=== PATIENT | female | born 1975 | race Hispanic/Latino ===

== ENCOUNTER 2018-03-11 10:14 | Emergency (ER) | payer SELFPAY ==
[~2018-03-11] VITALS: Ht 160 cm; Wt 70.8 kg
[2018-03-11] MEDS ORDERED: SODIUM CHLORIDE 0.9% 500ML 500 ML IV ONE (11:15)
[2018-03-11] MEDS ORDERED: DIAZEPAM 5 MG TAB PO ONE ×2 (11:30→12:00)
[2018-03-11 11:47] VITALS: BP 141/95
[2018-03-11] MEDS ORDERED: DIAZEPAM INJ 5 MG/ML 2 ML IV ONE (12:00)
[2018-03-11] MEDS ORDERED: ONDANSETRON HCL INJ 2 MG/ML VIAL IV ONE (12:00)
== END 2018-03-11 12:21 | disposition home or self-care (01) ==
LOC: EDBD 10:14 → ER 10:14
DX: H81.391 Other peripheral vertigo, right ear (principal); H66.001 Acute suppurative otitis media without spontaneous rupture of ear drum, right ear; H60.501 Unspecified acute noninfective otitis externa, right ear; I10 Essential (primary) hypertension; E11.9 Type 2 diabetes mellitus without complications; Z83.3 Family history of diabetes mellitus; Z82.49 Family history of ischemic heart disease and other diseases of the circulatory system
CPT/HCPCS: 93005; 99283; J2405; J3360; J7040

== ENCOUNTER 2020-09-13 15:11 | Emergency (ER) | payer OTHER ==
[~2020-09-13] VITALS: Ht 160 cm; Wt 70.8 kg
[2020-09-13] MEDS ORDERED: ONDANSETRON HCL INJ 2MG/ML 2ML 2 MG/ML VIAL IV NR (15:40)
[2020-09-13] MEDS ORDERED: MORPHINE SULFATE INJ 4 MG/ML INJ 1ML IV NR (15:40)
[2020-09-13 16:02] LABS: BASOPHILS % 0.6 % (0.0-1.0); EOSINOPHILS # (AUTO) 0.1 (0.0-0.4); EOSINOPHILS % 2.1 % (0.0-6.0); HEMATOCRIT 34.9 % (34.2-44.1); HEMOGLOBIN 10.6 g/dL (12.0-16.0); LYMPHOCYTES # (AUTO) 1.2 (1.0-3.2); LYMPHOCYTES % 17.3 % (18.0-39.1); MEAN CORPUSCULAR HEMOGLOBIN 26.3 pg (28-32); MEAN CORPUSCULAR HGB CONC 30.4 g/dL (31-35); MEAN CORPUSCULAR VOLUME 86.6 fL (81-99); MONOCYTES # (AUTO) 0.4 (0.2-0.8); MONOCYTES % 5.8 % (4.4-11.3); NEUTROPHILS # (AUTO) 4.9 (2.1-6.9); PLATELET COUNT 248 x10e3/uL (140-360); RED BLOOD COUNT 4.03 x10e6/uL (3.6-5.1); RED CELL DISTRIBUTION WIDTH 17.5 % (11.7-14.4)
[2020-09-13 16:14] LABS: INR 1.07; PROTHROMBIN TIME 14.5 seconds (11.9-14.5)
[2020-09-13 16:15] LABS: PARTIAL THROMBOPLASTIN TIME 33.7 seconds (23.8-35.5)
[2020-09-13 16:24] LABS: ALANINE AMINOTRANSFERASE 7 IU/L (0-55); ALBUMIN 3.9 g/dL (3.5-5.0); ALBUMIN/GLOBULIN RATIO 0.8 (0.8-2.0); ALKALINE PHOSPHATASE 48 IU/L (40-150); ANION GAP 15.3 mmol/L (8-16); BLOOD UREA NITROGEN 21 mg/dL (7-26); BUN/CREATININE RATIO 13 (6-25); CALCIUM 9.6 mg/dL (8.4-10.2); CARBON DIOXIDE 25 mmol/L (22-29); CHLORIDE 107 mmol/L (98-107); CREATINE KINASE 29 IU/L (29-168); CREATININE, SERUM 1.61 mg/dL (0.57-1.11); EST GLOMERULAR FILTRATION RATE 35 ML/MIN (60-); GLUCOSE 151 mg/dL (74-118); POTASSIUM 4.3 mmol/L (3.5-5.1); SODIUM 143 mmol/L (136-145)
[2020-09-13] MEDS ORDERED: DIPHENHYDRAMINE HCL INJ 50 MG/ML VIAL IV ONE (16:45)
[2020-09-13] MEDS ORDERED: KETOROLAC TROMETHAMINE 30 MG/ML VIAL IV ONE (16:45)
[2020-09-13] MEDS ORDERED: METOCLOPRAMIDE HCL 10 MG/2ML VIAL IV ONE (16:45)
[2020-09-13] MEDS ORDERED: SODIUM CHLORIDE 0.9% 500ML 500 ML IV ONE (16:45)
== END 2020-09-13 17:49 | disposition home or self-care (01) ==
LOC: ER 15:29
DX: G43.909 Migraine, unspecified, not intractable, without status migrainosus (principal); E11.65 Type 2 diabetes mellitus with hyperglycemia; I10 Essential (primary) hypertension; E78.5 Hyperlipidemia, unspecified; E03.9 Hypothyroidism, unspecified; F40.240 Claustrophobia
CPT/HCPCS: 36415; 70450; 71045; 80053; 82550; 82553; 84484; 84702; 85025; 85610; 85730; 93005; 99284; J1200; J1885; J2270; J2405; J2765; J7040